=== PATIENT | female | born 1945 | race Hispanic/Latino ===

== ENCOUNTER → 2018-06-02 | Day surgery (SDC) | payer MEDICARE ==
[2018-05-30 10:29] LABS: BASOPHILS # (AUTO) 0.1 (0.0-0.1); BASOPHILS % 0.9 % (0.0-1.0); EOSINOPHILS # (AUTO) 0.1 (0.0-0.4); EOSINOPHILS % 2.5 % (0.0-6.0); HEMATOCRIT 32.6 % (34.2-44.1); HEMOGLOBIN 10.7 g/dL (12.0-16.0); LYMPHOCYTES # (AUTO) 1.7 (1.0-3.2); LYMPHOCYTES % 31.6 % (18.0-39.1); MEAN CORPUSCULAR HEMOGLOBIN 29.6 pg (28-32); MEAN CORPUSCULAR HGB CONC 32.8 g/dL (31-35); MEAN CORPUSCULAR VOLUME 90.3 fL (81-99); MONOCYTES # (AUTO) 0.5 (0.2-0.8); MONOCYTES % 8.9 % (4.4-11.3); NEUTROPHILS # (AUTO) 3.1 (2.1-6.9); NEUTROPHILS % 55.7 % (38.7-80.0); PLATELET COUNT 228 x10e3/uL (140-360); RED BLOOD COUNT 3.61 x10e6/uL (3.6-5.1); RED CELL DISTRIBUTION WIDTH 14.4 % (11.7-14.4)
[~2018-06-02] MED LIST: ALLOPURINOL300 MG PO; ATENOLOL100 MG PO; FENTANYL CITRATE/PF 100MCG/2 ML INJ ONE; HYDROCHLOROTHIA50 MG PO; HYOSCYAMINE SULFATE 0.5 MG/ML INJ ONE; LISINOPRIL40 MG PO; METFORMIN HCL500 MG PO; METOPROLOL SUCC50 MG PO; MIDAZOLAM HCL 2 MG/2 ML VIAL ONE; SIMVASTATIN20 MG PO; SUCCINYLCHOLINE 200 MG/10 ML SYR ONE
[2018-06-02 16:19] VITALS: BP 123/67
[2018-06-02 16:47] LABS: WBC,FECAL (FECAL LACTOFERRIN) NEGATIVE (NEGATIVE)
--- NOTE | 2018-06-03 02:20 | Operative Report ---
DATE OF PROCEDURE: June 02, 2018 REFERRING PHYSICIAN: Dr. Tremaine Maradiaga. PROCEDURE PERFORMED: Esophagogastroduodenoscopy with biopsies and colonoscopy with polypectomy and biopsies. INDICATIONS FOR ESOPHAGOGASTRODUODENOSCOPY: Dyspepsia. INDICATIONS FOR COLONOSCOPY: Colorectal cancer screening, change of bowel habits. MEDICATION: Patient was done under MAC. Please see anesthesiologist's note. ESOPHAGOGASTRODUODENOSCOPY: Patient was placed in lateral decubitus position. Flexible fiberoptic Olympus gastroscope was introduced into the esophagus under direct visualization without any difficulty. There was some patchy erythema noted in distal esophagus. The scope was then advanced with ease into the stomach. Mucosa overlying the antrum and the body revealed some diffuse erythema and moderate edema and biopsies were obtained and sent to stain for H. pylori. Pylorus appeared to be of normal contour and shape, was intubated with ease, and the scope was advanced all the way to the 2nd portion of the duodenum. The scope was then withdrawn slowly, and a couple of somewhat scalloped looking folds were noted in the proximal 2nd portion. Biopsies were obtained to rule out sprue. Mucosa overlying the duodenal bulb appeared to be within normal limits. The scope was then withdrawn back into the stomach and retroflexed, and mucosa overlying the fundus and the cardia appeared to be within normal limits. The scope was then straightened out. The stomach was decompressed. Scope was subsequently withdrawn. Patient tolerated the procedure well. IMPRESSION 1. Distal esophagitis, mild. 2. Gastritis, biopsied; biopsies sent to stain for H. Pylori. 3. Rule out sprue. PLAN: Follow up histology. Initiate Protonix 40 mg 1 p.o. q.a.m. a.c. COLONOSCOPY: Patient was then turned around, and after adequate lubrication of the anal canal, a flexible fiberoptic Olympus colonoscope was inserted into the rectum with ease and advanced all the way to the cecum. It was then withdrawn slowly. Mucosa overlying the cecum appeared to be within normal limits. Two polyps were snared from the ascending colon. Mucosa overlying the ascending, transverse, descending, sigmoid, and rectum revealed some patchy mild inflammatory changes. Multiple random biopsies were obtained. The scope was then retroflexed into the distal rectum and small internal hemorrhoids were noted, none of which was actively bleeding. The scope was then straightened out. It was subsequently withdrawn after securing an adequate stool specimen that was sent for the appropriate stool studies. Patient tolerated procedure well. IMPRESSION 1. Ascending colon polyps x2, snared. 2. Mild patchy colitis. 3. Internal hemorrhoids, none actively bleeding. PLAN: Follow up histology. Follow up stool studies. Initiate Bentyl 10 mg 1 p.o. t.i.d.. Add VSL#3 one p.o. daily. Patient might benefit from a followup colonoscopy in 3-5 years. Job#: [id number] TRACEY cc:Dr. Tremaine Maradiaga
[2018-06-03 14:12] LABS: C DIFFICILE TOXIN A&B AMP PROB NEGATIVE (NEGATIVE)
== END | disposition home or self-care (01) ==
LOC: OR 13:28
PROVIDERS: ATTEND Internal Medicine Gastroenterology
DX: K52.9 Noninfective gastroenteritis and colitis, unspecified (principal); D12.2 Benign neoplasm of ascending colon; K29.70 Gastritis, unspecified, without bleeding; K20.9 Esophagitis, unspecified; K64.8 Other hemorrhoids; E11.9 Type 2 diabetes mellitus without complications; I10 Essential (primary) hypertension; M10.9 Gout, unspecified; R00.1 Bradycardia, unspecified; F41.9 Anxiety disorder, unspecified; Z01.810 Encounter for preprocedural cardiovascular examination; Z01.812 Encounter for preprocedural laboratory examination; Z79.84 Long term (current) use of oral hypoglycemic drugs
CPT/HCPCS: 36415 ×2; 43239; 45380; 45385; 82948; 83630; 83993; 85025; 87045; 87177; 87328; 87493; 88305; 88312; 88342; 93005; J1980; J2250

== ENCOUNTER 2018-07-16 13:22 | Inpatient (IN) | payer MEDICARE, OTHER ==
[~2018-07-16] VITALS: Ht 162.6 cm; Wt 52.2 kg
[~2018-07-16 13:22] MED LIST changes: -FENTANYL CITRATE/PF 100MCG/2 ML INJ ONE; -HYOSCYAMINE SULFATE 0.5 MG/ML INJ ONE; -MIDAZOLAM HCL 2 MG/2 ML VIAL ONE; -SUCCINYLCHOLINE 200 MG/10 ML SYR ONE
[2018-07-16] MEDS ORDERED: SODIUM CHLORIDE 0.9% 1000ML 1,000 ML IV ONE (16:15)
[2018-07-16] MEDS ORDERED: METHYLPREDNISOLONE SOD SUCC 125 MG/2ML VIAL IV ONE (16:15)
[2018-07-16] MEDS ORDERED: FAMOTIDINE 20 MG/2 ML VIAL IV NR (16:30)
[2018-07-16] MEDS ORDERED: DIPHENHYDRAMINE HCL INJ 50 MG/ML VIAL IV ONE (16:30)
[2018-07-16 16:51] LABS: BASOPHILS % 1.1 % (0.0-1.0); EOSINOPHILS # (AUTO) 0.1 (0.0-0.4); EOSINOPHILS % 4.3 % (0.0-6.0); HEMATOCRIT 38.3 % (34.2-44.1); HEMOGLOBIN 12.6 g/dL (12.0-16.0); LYMPHOCYTES # (AUTO) 1.4 (1.0-3.2); LYMPHOCYTES % 48.9 % (18.0-39.1); MEAN CORPUSCULAR HEMOGLOBIN 29.4 pg (28-32); MEAN CORPUSCULAR HGB CONC 32.9 g/dL (31-35); MEAN CORPUSCULAR VOLUME 89.3 fL (81-99); MONOCYTES # (AUTO) 0.3 (0.2-0.8); MONOCYTES % 9.9 % (4.4-11.3); NEUTROPHILS % 35.4 % (38.7-80.0); PLATELET COUNT 242 x10e3/uL (140-360); RED BLOOD COUNT 4.29 x10e6/uL (3.6-5.1); RED CELL DISTRIBUTION WIDTH 14.7 % (11.7-14.4)
[2018-07-16 17:05] LABS: ALANINE AMINOTRANSFERASE 45 IU/L (0-55); ALBUMIN 4.6 g/dL (3.5-5.0); ALBUMIN/GLOBULIN RATIO 0.9 (0.8-2.0); ALKALINE PHOSPHATASE 56 IU/L (40-150); ANION GAP 18.9 mmol/L (8-16); BLOOD UREA NITROGEN 59 mg/dL (7-26); BUN/CREATININE RATIO 35 (6-25); CALCIUM 10.1 mg/dL (8.4-10.2); CARBON DIOXIDE 18 mmol/L (22-29); CHLORIDE 105 mmol/L (98-107); EST GLOMERULAR FILTRATION RATE 30 ML/MIN (60-); GLUCOSE 106 mg/dL (74-118); MAGNESIUM 2.7 MG/DL (1.3-2.1); PHOSPHORUS 3.4 MG/DL (2.3-4.7); POTASSIUM 5.9 mmol/L (3.5-5.1); SODIUM 136 mmol/L (136-145)
[2018-07-16] MEDS ORDERED: ALBUTEROL SULF 0.083% NEB SOLN 3 ML NEB NEB STA (17:19)
[2018-07-16] MEDS ORDERED: SODIUM BICARBONATE 8.4% INJ 50 ML SYR IV STA (17:19)
[2018-07-16 17:20] LABS: BILIRUBIN,URINE NEGATIVE (NEGATIVE); CLARITY,URINE SL CLOUDY (CLEAR); COLOR,URINE YELLOW (YELLOW); KETONES,URINE NEGATIVE (NEGATIVE); LEUKOCYTE ESTERASE ,URINE TRACE (NEGATIVE); NITRITE,URINE NEGATIVE (NEGATIVE); PROTEIN,URINE DIPSTICK NEGATIVE (NEGATIVE); URINE UROBILINOGEN 0.2 mg/dL (0.2 - 1)
[2018-07-16 17:25] LABS: THYROID STIMULATING HORMONE 2.351 uIU/mL (0.350-4.940)
[2018-07-16 17:27] LABS: AMORPHOUS SEDIMENT,URINE FEW (FEW); BACTERIA,URINE MODERATE /HPF; EPITHELIAL CELLS,URINE FEW /LPF; RENAL EPITHELIAL CELLS,URINE FEW
[2018-07-16] MEDS ORDERED: SOD POLYSTYRENE SULFONATE SUSP 15 GM/60 ML BTL PO ONE (17:30)
[2018-07-16] MEDS ORDERED: CALCIUM GLUCONATE 10% INJ 9.3 MEQ in SODIUM CHLORIDE 0.9% 100 ML 100 ML IV ONE (17:30)
[2018-07-16] MEDS ORDERED: ONDANSETRON HCL INJ 2 MG/ML VIAL IV PRN (17:30)
[2018-07-16] MEDS ORDERED: SODIUM CHLORIDE FLUSH 10 ML SYR INJ PRN (17:30)
[2018-07-16] MEDS ORDERED: CEFTRIAXONE SOD 1 GM VIAL IV SCH (17:30)
[2018-07-16] MEDS ORDERED: DEXTROSE 50% SYRINGE 50 ML IV PRN (18:00)
[2018-07-16 18:18] LABS: % IRON SATURATION 26 % (15-50); CREATINE KINASE 52 IU/L (29-168); IRON 88 ug/dL (50-170); TOTAL IRON BINDING CAPACITY 344 ug/dL (261-478); TRANSFERRIN 246 mg/dL (180-382)
[2018-07-16] MEDS ORDERED: CALCIUM GLUCONATE 10% INJ 0.465 MEQ/ML VIAL ONE ×2 (18:52→18:56)
[2018-07-16] MEDS ORDERED: SODIUM CHLORIDE 0.9% 100 ML ONE (18:53)
[2018-07-16 18:55] LABS: HIV 1&2 AB SCREEN NON-REACTIVE (NONREACTIVE)
[2018-07-16 18:59] LABS: EOSINOPHILS % (MANUAL) 2 % (0-7); LYMPHOCYTES % (MANUAL) 42 % (19-48); MONOCYTES % (MANUAL) 14 % (3.4-9.0); NEUTROPHILS % (MANUAL) 42 % (40-74)
[2018-07-16 19:00] LABS: PLATELET ESTIMATE ADEQUATE; PLATELET MORPHOLOGY COMMENT NORMAL; RBC MORPHOLOGY COMMENT NORMAL
[2018-07-16 19:04] LABS: FOLATE 13.1 ng/mL (7.0-15.4)
--- NOTE | 2018-07-16 19:12 | NUR ---
REPPORT GIVEN TO MEGHNA GAY. PT SITTING UP IN BED EATING DINNER AT THIS TIME AND TOLERATING WELL. PT AWARE SHE WILL BE ADMITTED AND ROOM ASSIGNMENT IS PENDING AT THIS TIME.
[2018-07-16] MEDS: CEFTRIAXONE SOD 1 GM/NS 50 ML 50 ML IV SCH (19:18)
--- NOTE | 2018-07-16 19:26 | Diagnostic Imaging Report ---
EXAMINATION: CHEST 2 VIEWS INDICATION: Fever and weakness COMPARISON: None FINDINGS: PA and lateral views TUBES and LINES: None. LUNGS: The diaphragms are flat. The lungs are well-inflated. There is no evidence of pneumonia or pulmonary edema. PLEURA: There is blunting of the left posterior costophrenic angle. HEART AND MEDIASTINUM: The cardiomediastinal silhouette is unremarkable.. BONES AND SOFT TISSUES: No focal osseous lesions. Soft tissues are unremarkable. UPPER ABDOMEN: No free air under the diaphragm. IMPRESSION: Pulmonary hyperinflation suggestive of COPD. Blunting of the left posterior costophrenic angle may be the result of pleural effusion or pleural thickening. Signed by: Dr. Karla Grullon MD on 07/16/2018 7:22 PM
--- NOTE | 2018-07-16 19:28 | History and Physical ---
HISTORY OF PRESENT ILLNESS: The patient was seen in the office last July 13. At that time, she reported 1 week of intermittent fever with poor appetite without other significant symptoms. Ultrasound was requested and revealed some gallbladder sludge without cholecystitis. Questionable steatosis of liver. No obstruction. White count at that time was low at 3000. Her laboratory reports did not return until today however. These reports included AST 42 ALT 31. Today, AST is 43. To check CPK. The patient's lab studies also revealed azotemia, which is slightly improved today. Also hyperkalemia and the patient was asked to come to the hospital to be treated for her elevated potassium levels and for further assessment. Patient denies headache or visual symptoms. No sore throat. No significant respiratory symptoms. She states for several days, she has lost her appetite. She noted a truncal pruritic macular eruption also involving the upper extremities. Patient denied chest pain or shortness of breath. Denied other significant GI or symptoms. No dysuria or hematuria or frequency. Neuromuscular, essentially stable. Monday's BUN 48, creatinine 2.40. Flu A and B antigens were negative last Monday. June 02, here, EGD colonoscopy done and revealed esophagitis, gastritis, benign polyps, mild colitis. History has included chronic mild anemia with negative workup previously. Type-2 diabetes mellitus controlled. High blood pressure. Hyperlipoproteinemia. Gout. No recent gouty symptoms. Surgeries have included appendectomy. 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 No tobacco. Social alcohol. ALLERGIES: FLEXERIL. INTOLERANCE TO CIPRO IN THE PAST. PATIENT HAS NOT TAKEN ANTIBIOTICS RECENTLY. ER DID HOWEVER ORDERED INTRAVENOUS CEPHALOSPORIN TODAY. FAMILY HISTORY: Mother with hypertension and diabetes. Father with hypertension. CURRENT EXAMINATION GENERAL: The patient is supine. In no distress in no distress. Sensorium baseline. VITALS: Pulse is 80 and regular. Respiratory rate 12, no distress. ER temperature 97.6. ER pulse 55 and regular. Respiratory rate is 16. BP 150/71. O2 sat 100%. HEENT: Pupils round reactive. EOMs full. Throat clear. NECK: Supple. Carotids palpable. PULMONARY: Auscultation clear. CARDIAC SOUNDS: S1 and S2 normal. SKIN: Questionable faint erythematous changes over the skin, which lines with pressure. CARDIOTHORACIC: Exam negative as above. ABDOMEN: Abdomen is soft. Bowel sounds normal without appreciable mass or megaly. EXTREMITIES: Free of edema, clubbing, and cyanosis. Pulses are palpable. DTRs symmetrical. Babinski is negative. Strength fair. CURRENT IMPRESSIONS 1. Acute febrile illness of 1 week's duration. The patient states fever has stopped yesterday after the approximately 1 week of these symptoms associated with nausea, loss of appetite, pruritic macular skin changes associated low white blood cell count. Today's white count is 2.82, hemoglobin 12.6 with normal indices. Percent neutrophil is low at 35.4. Percent lymphocytes 48.9. Associated azotemia and hyperkalemia. Creatinine 1.7. BUN 59 today. 2. History of chronic mild anemia. Current iron studies normal. Recent gastrointestinal studies as above. 3. Questionable hepatic steatosis on ultrasound last Monday. Trace elevated transaminases on statins. To check creatine phosphokinase. 4. History of gastritis and esophagitis. Mild colitis on endoscopy as mentioned June 02, 2018. See reports. 5. Elevated total protein. Globulin elevated. To check protein electrophoresis. Continue to monitor potassium levels. History includes diabetes mellitus. To hold prior to admission metformin. Treat with sliding scale as needed. Follow up blood pressures and treat as needed. This patient has history of hypertension. Hyperlipoproteinemia. Chemistry as above. Further treatment pending followup data and course. Treat hyperkalemia further if needed. See also initial and followup orders. ER has dispensed also bolus of steroids for pruritus. Job#: [id number] CQ
[2018-07-16] MEDS: SODIUM CHLORIDE 0.9% 1000ML 1,000 ML IV SCH (21:00)
[2018-07-16 21:10] VITALS: BP 168/69
--- NOTE | 2018-07-16 21:10 | NUR ---
PT ADMITTED TO OBS, VIA STRETCHER FROM ER, INITIAL ASSESSMENT COMPLETE, ORIENTED TO ROOM, PAPERWORK SIGNED, TELE ON PT, IV INTACT, IV INFUSING, FAMILY AT BEDSIDE,
[2018-07-17] VITALS (7 sets, daily range): BP systolic 119–168; BP diastolic 59–70
[2018-07-17] MEDS: SODIUM CHLORIDE 0.9% 1000ML 1,000 ML IV SCH ×2 (03:29→17:50)
[2018-07-17 05:09] LABS: HEMATOCRIT 27.4 % (34.2-44.1); HEMOGLOBIN 9.1 g/dL (12.0-16.0); LYMPHOCYTES # (AUTO) 0.6 (1.0-3.2); LYMPHOCYTES % 46.9 % (18.0-39.1); MEAN CORPUSCULAR HEMOGLOBIN 29.3 pg (28-32); MEAN CORPUSCULAR HGB CONC 33.2 g/dL (31-35); MEAN CORPUSCULAR VOLUME 88.1 fL (81-99); MONOCYTES # (AUTO) 0.1 (0.2-0.8); MONOCYTES % 6.3 % (4.4-11.3); NEUTROPHILS # (AUTO) 0.6 (2.1-6.9); NEUTROPHILS % 46.8 % (38.7-80.0); PLATELET COUNT 169 x10e3/uL (140-360); RED BLOOD COUNT 3.11 x10e6/uL (3.6-5.1); RED CELL DISTRIBUTION WIDTH 14.5 % (11.7-14.4)
[2018-07-17 05:37] LABS: ALBUMIN 3.2 g/dL (3.5-5.0); ALBUMIN/GLOBULIN RATIO 0.9 (0.8-2.0); ANION GAP 15.5 mmol/L (8-16); CALCIUM 8.5 mg/dL (8.4-10.2); CREATININE, SERUM 1.36 mg/dL (0.57-1.11); POTASSIUM 5.5 mmol/L (3.5-5.1)
[2018-07-17] MEDS: CEFTRIAXONE SOD 1 GM/NS 50 ML 50 ML IV SCH ×2 (06:00→17:52)
--- NOTE | 2018-07-17 06:23 | NUR ---
CRITICAL LAB VALUES REPORTED THIS MORNING, DR DONOVAN CALLED, REQUESTED CONSULT OF DR HEREDIA AND LAB WORK UP, SPOKE WITH DR HEREDIA AND HE WILL SEE PT TODAY
--- NOTE | 2018-07-17 08:01 | NUR ---
Dr. Maradiaga made aware of potassium level of 5.5, no new orders given.
[2018-07-17] MEDS ORDERED: FILGRASTIM 300 MCG/ML VIAL SC SCH ×2 (09:15)
[2018-07-17] MEDS ORDERED: FILGRASTIM 480 MCG/0.8 ML SYRINGE SQ NR (10:00)
--- NOTE | 2018-07-17 10:23 | NUR ---
CASE MANAGEMENT INITIAL ASSESSMENT Tank Processor to bedside to discuss plan of care with patient/family. CM/SW role and care transitions discussed. Anticipated discharge plan discussed along with duration of care. CM/SW discussed patients right to make decisions in care. CM/SW work hours given. Patient lives: IN OWN HOUSE WITH ADULT SON Admit/Transfer: VIA ED FROM HOME POA/Emergency contact: DAUGHTER REGAN [phone] Current/Previous Home Health: NONE PCP/Follow-up Care: [facility] Current/Previous DME: NONE Other Services: NONE Employment Status: RETIRED Areas of Concerns: EVERYDAY SMOKER Referral Needs: NONE Education Needs: NONE IMM/THIBODEAUX given and signed (if applicable): NA Goal for discharge: RETURN HOME INDEPENDENTLY CM/SW left business card at the bedside with contact information. Name and number was also written on the patients whiteboard. Patient verbalized understanding of discussion. CM will follow-up with ongoing discharge and transition of care needs.
--- NOTE | 2018-07-17 11:15 | Consultation ---
DATE OF CONSULTATION: July 17, 2018 ATTENDING PHYSICIAN: Tremaine Maradiaga MD REASON FOR CONSULTATION: Febrile illness. Thank you, Dr. Maradiaga, for asking me to see this patient. HISTORY OF PRESENT ILLNESS: Patient is a 72-year-old woman referred for febrile illness. The patient was sent to the emergency department yesterday by the primary care provider because of hyperkalemia. The patient presented to the primary care provider with fever, chills, and generalized weakness which began 5 days earlier. The patient also noted diffuse maculopapular rash. She denies cough, shortness of breath, nausea, vomiting, diarrhea, abdominal pain and dysuria. The patient's grandson had a runny nose and cough, but he only came in contact with the patient several hours prior to onset of her symptoms. The patient owns dogs which are healthy. She traveled to [place] for [employer], spending about 4 days there. She did not come in contact with a construction site while in [place]. Also, she claimed that it was cold and snowing and not maria r. The patient was recently treated for urinary tract infection by the housekeeping worker, and she completed the prescribed antibiotic without incident. Also, she began taking dicyclomine, pantoprazole and another medicine which she claimed was a probiotic prescribed by her [employer] product consultant after a recent colonoscopy. The patient stated that she stopped taking the medicines on her own when the fever and chills began. PAST MEDICAL HISTORY: Diabetes mellitus type 2, hypertension, hyperlipidemia, gout and uterine prolapse. PAST SURGICAL HISTORY: Aneurysmal coiling and appendectomy. ALLERGIES: FLEXERIL AND CIPROFLOXACIN, WHICH CAUSED DIZZINESS AND A SPINNING SENSATION. MEDICATIONS: The current antibiotic is ceftriaxone 1 gram IV piggyback q.12 h. IMMUNIZATION: She received influenza vaccine this season. Also, she received a pneumococcal vaccination in the past. FAMILY HISTORY: Mother with diabetes mellitus and hypertension. Father with hypertension. SOCIAL HISTORY: She drinks alcohol occasionally. She smoked briefly in college. REVIEW OF SYSTEMS: As per history of present illness. She has not had fever for 3 to 4 days. The rash is improving. She denies cough, shortness of breath, nausea, vomiting, diarrhea, abdominal pain, joint ache, joint swelling, dysuria or diarrhea. PHYSICAL EXAMINATION VITAL SIGNS: T-max 97.6, pulse rate 72, respiratory rate 18, blood pressure 138/65. Weight 115 pounds. GENERAL: No acute distress, does not appear toxic. HEENT: Normocephalic. There is no icterus or injection of the conjunctivae. There is no ear or nasal discharge. Moist oral mucosa without with oral lesions. No pharyngeal erythema or exudate. NECK: Supple. No meningismus. LUNGS: Clear to auscultation bilaterally. HEART: Normal S1 and S2, regular. ABDOMEN: Soft, nontender. EXTREMITIES: There is no edema, clubbing or cyanosis. Dorsalis pedis and posterior tibial pulses are palpable. SKIN: There is diffuse, fading, maculopapular rash. HEAD TENNIS PROFESSIONAL: Awake, alert and oriented to person, place and time. The monofilament test of the feet is normal. Nonfocal. LABORATORY AND DIAGNOSTICS: WBC 1280, hemoglobin 9.1, platelets 169,000, neutrophils 46.8, lymphocytes 46.9, monocytes 6.2, eosinophils 0, basophils 0. BUN 43 and creatinine 1.36. Serum potassium 5.5. Blood glucose 169. AST 25, ALT 30, alk phos 36, total bilirubin 0.3. HIV screen is negative. Chest x-ray showed pulmonary hyperinflation suggestive of COPD. IMPRESSION 1. Febrile illness, self-limiting, may be secondary to viral syndrome or drug eruption. Valley fever is less likely in view of rapid resolution of symptoms. 2. Diabetes mellitus, type 2, controlled. PLAN: Monitor off antibiotics. If the symptoms recur, the patient should be worked up for valley fever. Job#: [id number]
[2018-07-17] MEDS ORDERED: SOD POLYSTYRENE SULFONATE SUSP 15 GM/60 ML BTL PO ONE (13:00)
[2018-07-17] MEDS ORDERED: DEXTROSE 50% SYRINGE 50 ML IV PRN (13:15)
[2018-07-17] MEDS ORDERED: SINCALIDE 3 MCG/VIAL INJ ONE (16:31)
--- NOTE | 2018-07-17 17:15 | NUR ---
Dr. Maradiaga made aware of ejection fraction of the gallbladder of 11%.
[2018-07-17] MEDS: INSULIN REGULAR, HUMAN 100 UNIT/1 ML 3ML VIAL SQ SCH ×2 (17:40→21:53)
--- NOTE | 2018-07-17 18:49 | Diagnostic Imaging Report ---
Hepatobiliary Scan with Gallbladder Ejection Fraction Clinical information: 72 F with abdominal pain Report: Following intravenous administration of 5.9 millicuries of Tc-99m mebrofenin, dynamic images of the abdomen in the anterior projection were obtained through 30 minutes. Sincalide (CCK analog) 1.2 micrograms was administered intravenously over 30 minutes with additional imaging for determination of gallbladder ejection fraction. Perfusion to the liver is normal. Extraction of tracer from the blood pool by the liver parenchyma is normal. Tracer is seen promptly within the biliary tract. The gallbladder begins to fill by 12 minutes post-injection of tracer and fills adequately. Tracer is seen in the small bowel by 8 minutes. The gallbladder ejection fraction with administration of sincalide is 11% (normal greater than 40%). Impression: 1. Filling of the gallbladder excludes the diagnosis of acute cystic duct obstruction/acute cholecystitis. 2. Normal gallbladder ejection fraction of 11% does not support the clinical diagnosis of chronic cholecystitis/gallbladder dyskinesia. Signed by: Dr. Karen Correa M.D. on 07/17/2018 6:45 PM
--- NOTE | 2018-07-17 19:13 | NUR ---
PT IS RESTING IN BED. NO RESPIRATORY DISTRESS NOTED. BED IN THE LOWEST POSITION, LOCKED, AND CALL LIGHT WITHIN REACH. WILL CONTINUE TO MONITOR.
[2018-07-18] VITALS (7 sets, daily range): BP systolic 121–168; BP diastolic 59–77
[2018-07-18] MEDS: SODIUM CHLORIDE 0.9% 1000ML 1,000 ML IV SCH ×2 (04:21→20:47)
[2018-07-18 05:15] LABS: BASOPHILS % 0.1 % (0.0-1.0); EOSINOPHILS % 0.1 % (0.0-6.0); HEMATOCRIT 26.7 % (34.2-44.1); HEMOGLOBIN 8.7 g/dL (12.0-16.0); LYMPHOCYTES # (AUTO) 1.6 (1.0-3.2); LYMPHOCYTES % 10.6 % (18.0-39.1); MEAN CORPUSCULAR HGB CONC 32.6 g/dL (31-35); MONOCYTES # (AUTO) 0.8 (0.2-0.8); MONOCYTES % 5.8 % (4.4-11.3); NEUTROPHILS # (AUTO) 11.9 (2.1-6.9); NEUTROPHILS % 81.3 % (38.7-80.0); PLATELET COUNT 174 x10e3/uL (140-360); RED CELL DISTRIBUTION WIDTH 14.6 % (11.7-14.4)
[2018-07-18] MEDS: CEFTRIAXONE SOD 1 GM/NS 50 ML 50 ML IV SCH ×2 (05:38→17:17)
[2018-07-18] MEDS: INSULIN REGULAR, HUMAN 100 UNIT/1 ML 3ML VIAL SQ SCH ×4 (07:30→20:48)
[2018-07-18] MEDS ORDERED: LIDOCAINE HCL 2% LOCAL 20 ML VIAL INJ ONE (08:15)
[2018-07-18 08:16] LABS: BAND NEUTROPHILS % (MANUAL) 3 %; LYMPHOCYTES % (MANUAL) 14 % (19-48); MONOCYTES % (MANUAL) 5 % (3.4-9.0); NEUTROPHILS % (MANUAL) 78 % (40-74)
[2018-07-18 08:17] LABS: ANISOCYTOSIS SLIGHT; HYPOCHROMASIA MODE; PLATELET ESTIMATE ADEQUATE; RBC MORPHOLOGY COMMENT NORMAL
[2018-07-18 08:18] LABS: PLATELET MORPHOLOGY COMMENT NORMAL
--- NOTE | 2018-07-18 10:10 | NUR ---
bone marrow biopsy complete at BS by Dr Rodriguez. patient tolerated well.
--- NOTE | 2018-07-18 12:28 | NUR ---
patient c/o chest pain. Dr Adrienne avitia and EKG done.
--- NOTE | 2018-07-18 13:15 | NUR ---
Dr Forte notified of cardiac consult.
[2018-07-18 13:35] LABS: CREATINE KINASE 32 IU/L (29-168)
[2018-07-18] MEDS ORDERED: ACETAMINOPHEN 325 MG TAB PO PRN (13:45)
[2018-07-18] MEDS ORDERED: SOD POLYSTYRENE SULFONATE SUSP 15 GM/60 ML BTL PO ONE (15:15)
--- NOTE | 2018-07-18 15:49 | NUR ---
DAY 2 OBS DEVELOPED CHEST PAIN TODAY CARDIOLOGY CONSULT ENZYMES AND ECHO PENDING K HIGH; KAYEXALATE ORDERED NO INPT CRITERIA
--- NOTE | 2018-07-18 16:23 | Consultation ---
DATE OF CONSULTATION: July 18, 2018 CARDIOLOGY CONSULTATION REQUESTING PHYSICIAN: Dr. Maradiaga. REASON FOR CONSULTATION: Chest pain. HISTORY OF PRESENT ILLNESS: This is a pleasant 72-year-old female that presented due to elevated potassium. She stated that she had fever x1 week and generalized weakness. She went to see PCP, and some lab work was done. She stated on the she got a phone call to come to the emergency room because her potassium was elevated. She also stated [place], did not come in contact with any sick person. She was flu negative. Today she started complaining of tight chest pain on the center of the chest on a scale of 5 out of 10 with no radiation, and Cardiology was consulted. She recently saw Dr. Dylan Forte in the office in December, had a negative cardiac stress test, and also in June for surgical clearance. She denied any palpitation, any shortness of breath, any diaphoresis, any headache, any nausea or vomiting. She also stated she was so dehydrated with low appetite and she was not able to eat. Troponin x2 was negative. EKG showed normal sinus rhythm with no ST abnormality with P-wave inversion in V1 and V2. PAST MEDICAL HISTORY: Of diabetes, hypertension, gout, uterine prolapse, hyperlipidemia, anemia, nonbleeding internal hemorrhoids, ascending colon polyps x2, mild patchy colitis, and GERD. PAST SURGICAL HISTORY: Of appendectomy and right central nervous system aneurysm coil that was done in 2008. FAMILY HISTORY: Noncontributory. SOCIAL HISTORY: She lives at home with family. No smoking, no drinking. MEDICATIONS: See med list. ALLERGIES: SHE IS NOT ALLERGIC TO ANY MEDICATION. REVIEW OF SYSTEMS: Negative except those mentioned above. PHYSICAL EXAMINATION VITAL SIGNS: Temperature 97.4, heart rate 80, blood pressure 164/74, respiration 16, oxygen saturation 99% on 2 liters nasal cannula. GENERAL: She is awake, alert and oriented x3 but weak. HEENT: Mucous membrane dry. NECK: Supple. LUNGS: Bilaterally clear to auscultation. CARDIOVASCULAR: S1/S2 present. ABDOMEN: Soft. NEUROLOGICAL: Intact. EXTREMITIES: Lower with no edema. LABS: Sodium 134, potassium 5.5, chloride 106, CO2 18, BUN 43, creatinine 1.36, glucose 183. White blood cell 14.5, hemoglobin 8.7, hematocrit 26.7, platelet 174. IMPRESSION 1. Chest pain. 2. Hyperkalemia. 3. Anemia. 4. Acute renal insufficiency. 5. Urinary tract infection. 6. Hypertension. 7. Elevated white blood count. 8. Hyperlipidemia. 9. History of gout. ASSESSMENT/PLAN 1. Will go ahead and get serial cardiac enzymes. 1. Will get an echocardiogram to assess the LV and the valve function. 2. Potassium 5.5, will go ahead and give Kayexalate x1. 3. Blood pressure high, will resume her home medication beta kerrie, will go ahead and hold CURT and statin due to the elevated liver function and the renal function. 4. She had a recent stress test in December 2017 that was negative. 5. She is status post bone marrow biopsy due to fever of unknown origin. Further cardiac workup pending clinical course. Thank you for this consultation. Dictated by: Reinier Cornejo NP Job#: [id number]
[2018-07-18 17:14] LABS: CALCIUM 8.2 mg/dL (8.4-10.2); CREATININE, SERUM 0.93 mg/dL (0.57-1.11)
--- NOTE | 2018-07-18 17:22 | Diagnostic Imaging Report ---
EXAMINATION: CHEST SINGLE (PORTABLE) COMPARISON: Chest x-ray 07/16/2018 INDICATION: Chest pain DISCUSSION: Frontal view of the chest obtained at 1637 hours. HEART AND MEDIASTINUM: The cardiomediastinal silhouette is unremarkable. LINES: None. LUNGS: Diffuse hyperinflation suggestive of COPD. No pneumonia or pulmonary edema. PLEURA: No pleural effusion or pneumothorax. BONES AND SOFT TISSUES: No focal osseous lesion. The soft tissues are normal. IMPRESSION: Stable pulmonary hyperinflation. No acute cardiopulmonary process. Signed by: Dr. Karla Grullon MD on 07/18/2018 5:19 PM
[2018-07-19] VITALS: BP 163/79
[2018-07-19] MEDS: SODIUM CHLORIDE 0.9% 1000ML 1,000 ML IV SCH (00:47)
[2018-07-19 04:00] VITALS: BP 162/73
--- NOTE | 2018-07-19 05:05 | NUR ---
Patient's IV removed due to infiltration. Patient states she does not want another inserted because she's going home today. Explained to her about antibiotics due at 0600. States she wants to wait for doctor.
[2018-07-19 05:10] LABS: BASOPHILS % 0.2 % (0.0-1.0); EOSINOPHILS # (AUTO) 0.1 (0.0-0.4); EOSINOPHILS % 0.5 % (0.0-6.0); HEMATOCRIT 25.6 % (34.2-44.1); HEMOGLOBIN 8.4 g/dL (12.0-16.0); LYMPHOCYTES # (AUTO) 1.7 (1.0-3.2); LYMPHOCYTES % 11.5 % (18.0-39.1); MEAN CORPUSCULAR HEMOGLOBIN 29.2 pg (28-32); MEAN CORPUSCULAR HGB CONC 32.8 g/dL (31-35); MEAN CORPUSCULAR VOLUME 88.9 fL (81-99); MONOCYTES % 6.6 % (4.4-11.3); NEUTROPHILS # (AUTO) 10.6 (2.1-6.9); NEUTROPHILS % 71.7 % (38.7-80.0); PLATELET COUNT 176 x10e3/uL (140-360); RED BLOOD COUNT 2.88 x10e6/uL (3.6-5.1); RED CELL DISTRIBUTION WIDTH 14.6 % (11.7-14.4)
[2018-07-19 05:38] LABS: ANION GAP 13.4 mmol/L (8-16); BLOOD UREA NITROGEN 10 mg/dL (7-26); BUN/CREATININE RATIO 13 (6-25); CALCIUM 7.8 mg/dL (8.4-10.2); CARBON DIOXIDE 22 mmol/L (22-29); CHLORIDE 107 mmol/L (98-107); CREATININE, SERUM 0.78 mg/dL (0.57-1.11); EST GLOMERULAR FILTRATION RATE > 60 ML/MIN (60-); GLUCOSE 107 mg/dL (74-118); POTASSIUM 3.4 mmol/L (3.5-5.1); SODIUM 139 mmol/L (136-145)
[2018-07-19] MEDS: CEFTRIAXONE SOD 1 GM/NS 50 ML 50 ML IV SCH (06:00)
[2018-07-19] MEDS: INSULIN REGULAR, HUMAN 100 UNIT/1 ML 3ML VIAL SQ SCH ×3 (07:30→12:16)
--- NOTE | 2018-07-19 07:32 | NUR ---
Received patient, patient resting in bed. No signs of distress noted. Bed in lowest position, bed locked, call light within reach. Will continue to monitor.
[2018-07-19 08:06] VITALS: BP 148/69
[2018-07-19 08:13] VITALS: BP 148/69
[2018-07-19 08:48] LABS: BAND NEUTROPHILS % (MANUAL) 2 %; LYMPHOCYTES % (MANUAL) 13 % (19-48); METAMYELOCYTES % (MANUAL) 1 % (0-0); MONOCYTES % (MANUAL) 4 % (3.4-9.0); MYELOCYTES % (MANUAL) 3 % (0-0); NEUTROPHILS % (MANUAL) 77 % (40-74)
[2018-07-19 08:49] LABS: ANISOCYTOSIS SLIGHT; ELLIPTOCYTE, RBC SLIGHT; HYPOCHROMASIA MODERATE; PLATELET ESTIMATE ADEQUATE; PLATELET MORPHOLOGY COMMENT FEW LARGE; RBC MORPHOLOGY COMMENT NORMAL; SMUDGE CELLS FEW
[2018-07-19] MEDS ORDERED: METOPROLOL SUCCINATE 50 MG TAB XL PO SCH (09:00)
[2018-07-19 12:12] VITALS: BP 139/73
--- NOTE | 2018-07-19 13:43 | NUR ---
Patient discharged from facility. Patient left via private auto. F/U information, medication prescriptions, and discharge instructions given to patient. Patient verbalized understanding of discharge instructions. No signs of distress noted.
[2018-07-19] MEDS ORDERED: METFORMIN HCL 500 MG TAB PO SCH (17:00)
== END 2018-07-19 13:45 | disposition home or self-care (01) | DRG 683 ==
LOC: ER 13:22 → ERHOLD 17:46 → IMCU 21:17 → OBSVTOIN 07-18 17:11
PROVIDERS: ADMIT Internal Medicine; ATTEND Internal Medicine
DX: N17.9 Acute kidney failure, unspecified (principal); N39.0 Urinary tract infection, site not specified; E87.5 Hyperkalemia; B34.9 Viral infection, unspecified; E11.9 Type 2 diabetes mellitus without complications; Z79.4 Long term (current) use of insulin; I10 Essential (primary) hypertension; M10.9 Gout, unspecified; E78.5 Hyperlipidemia, unspecified; D64.9 Anemia, unspecified; K76.0 Fatty (change of) liver, not elsewhere classified; K29.70 Gastritis, unspecified, without bleeding; K20.9 Esophagitis, unspecified; K82.8 Other specified diseases of gallbladder; D63.8 Anemia in other chronic diseases classified elsewhere; J44.9 Chronic obstructive pulmonary disease, unspecified; E86.0 Dehydration
CPT/HCPCS: 36415; 71045; 71046; 78227; 80048; 80053; 81001; 82550; 82553; 82607; 82746; 82784; 82948; 83540; 83735; 84100; 84165; 84443; 84466; 84484; 85025; 85045; 87086; 87390; 93005; 93306; 99284; A9537; G0378; G0433; G0435; J0610; J0696; J1200; J1442; J2001; J2805; J2930; J7030; J7050

== ENCOUNTER 2018-08-06 23:13 | Emergency (ER) | payer OTHER ==
[~2018-08-06] VITALS: Ht 162.6 cm; Wt 52.2 kg
--- OUTSIDE RECORDS SUMMARY | 2018-08-06 23:16 | XMS REPORT | Continuity of Care Document ---
Author Author [facility] Interface Address Unknown Phone Unavailable Problems Problem Status Onset Date Classification Date Reported Comments Source Dehydration Active Problem 07/19/2018 [facility] Urinary tract infection Active Problem 07/19/2018 [facility] Medications Medication Details Route Status Patient Instructions Ordering Provider Order Date Source Allopurinol 300 Mg Tablet, 300 Mg Oral Daily Active 07/19/2018 [facility] Simvastatin 20 Mg Tablet, 20 Mg Oral Daily Active 07/19/2018 [facility] Atenolol 100 Mg Tablet, 100 Mg Oral Daily Active 05/31/2018 [facility] Hydrochlorothiazide 50 Mg Tablet, 50 Mg Oral Daily Active 05/31/2018 [facility] Lisinopril 40 Mg Tablet, 40 Mg Oral Daily Active 05/31/2018 [facility] Metformin Hcl 500 Mg Tablet Twice A Day Active [facility] Metoprolol Succinate 50 Mg Tab.er.24h Daily Active [facility] Allergies, Adverse Reactions, Alerts Substance Category Reaction Severity Reaction type Status Date Reported Comments Source Immunizations Immunization Date Given Site Status Last Updated Comments Source Results Order Name Results Value Reference Range Date Interpretation Comments Source Capillary blood glucose measurement by glucometer (mass/volume) 148 70 - 120 07/19/2018 [facility] Blood leukocytes automated count (number/volume) 14.77 4.8 - 10.8 07/19/2018 [facility] Blood erythrocytes automated count (number/volume) 2.88 3.6 - 5.1 07/19/2018 [facility] Blood hemoglobin measurement (moles/volume) 8.4 12.0 - 16.0 07/19/2018 [facility] Automated blood hematocrit (volume fraction) 25.6 34.2 - 44.1 07/19/2018 [facility] Automated erythrocyte mean corpuscular volume 88.9 81 - 99 07/19/2018 [facility] Automated erythrocyte mean corpuscular hemoglobin (mass per erythrocyte) 29.2 28 - 32 07/19/2018 [facility] Automated erythrocyte mean corpuscular hemoglobin concentration measurement (mass/volume) 32.8 31 - 35 07/19/2018 [facility] RDW BldCo-Rto 14.6 11.7 - 14.4 07/19/2018 [facility] Automated blood platelet count (count/volume) 176 140 - 360 07/19/2018 [facility] Automated blood segmented neutrophil count as percentage of total leukocytes 71.7 38.7 - 80.0 07/19/2018 [facility] Automated blood lymphocyte count as percentage ot total leukocytes 11.5 18.0 - 39.1 07/19/2018 [facility] Automated blood monocyte count as percentage of total leukocytes 6.6 4.4 - 11.3 07/19/2018 [facility] Automated blood eosinophil count as percentage of total leukocytes 0.5 0.0 - 6.0 07/19/2018 [facility] Automated blood basophil count as percentage of total leukocytes 0.2 0.0 - 1.0 07/19/2018 [facility] IM GRANULOCYTES % 9.5 0.0 - 1.0 07/19/2018 [facility] Automated blood neutrophil count 10.6 2.1 - 6.9 07/19/2018 [facility] Blood lymphocytes count (number/volume) 1.7 1.0 - 3.2 07/19/2018 [facility] Blood monocytes automated count (number/volume) 1.0 0.2 - 0.8 07/19/2018 [facility] Automated blood eosinophil count 0.1 0.0 - 0.4 07/19/2018 [facility] Automated blood basophil count (count/volume) 0.0 0.0 - 0.1 07/19/2018 [facility] Absolute Immature Granulocyte (auto 1.40 0 - 0.1 07/19/2018 [facility] Differential Total Cells Counted 100 07/19/2018 [facility] Manual blood neutrophils/100 leukocytes 77 40 - 74 07/19/2018 [facility] Manual blood band neutrophils form/100 leukocytes 2 07/19/2018 [facility] Manual blood lymphocytes/100 leukocytes 13 19 - 48 07/19/2018 [facility] Manual blood monocytes/100 leukocytes 4 3.4 - 9.0 07/19/2018 [facility] Manual blood metamyelocytes/100 leukocytes 1 0 - 0 07/19/2018 [facility] Manual blood myelocytes/100 leukocytes 3 0 - 0 07/19/2018 [facility] Blood smudge cells detection by light microscopy FEW 07/19/2018 [facility] Blood platelets count by estimate (number/volume) ADEQUATE 07/19/2018 [facility] Platelet morphology FEW LARGE 07/19/2018 [facility] Blood hypochromia detection by light microscopy MODERATE 07/19/2018 [facility] Blood anisocytosis detection by light microscopy SLIGHT 07/19/2018 [facility] Elliptocyte detection SLIGHT 07/19/2018 [facility] RBC morphology NORMAL 07/19/2018 [facility] Serum or plasma sodium measurement (moles/volume) 139 136 - 145 07/19/2018 [facility] Serum or plasma potassium measurement (moles/volume) 3.4 3.5 - 5.1 07/19/2018 [facility] Serum or plasma chloride measurement (moles/volume) 107 98 - 107 07/19/2018 [facility] Serum or plasma carbon dioxide, total measurement (moles/volume) 22 22 - 29 07/19/2018 [facility] Serum or plasma anion gap 13.4 8 - 16 07/19/2018 [facility] Serum or plasma urea nitrogen measurement (mass/volume) 10 7 - 26 07/19/2018 [facility] Serum or plasma creatinine measurement (mass/volume) 0.78 0.57 - 1.11 07/19/2018 [facility] Serum or plasma urea nitrogen/creatinine mass ratio 13 6 - 25 07/19/2018 [facility] Estimated glomerular filtration rate (GFR) determination > 60 60 07/19/2018 [facility] Glucose measurement 107 74 - 118 07/19/2018 [facility] Serum or plasma calcium measurement (mass/volume) 7.8 8.4 - 10.2 07/19/2018 [facility] Troponin I measurement by highly sensitive enzyme immunoassay < 0.001 0 - 0.300 07/18/2018 [facility] Serum or plasma creatine kinase measurement (enzymatic activity/volume) 32 29 - 168 07/18/2018 [facility] Serum or plasma creatine kinase MB measurement (mass/volume) 0.70 0 - 5.0 07/18/2018 [facility] Automated reticulocyte count as percentage of total erythrocytes 0.6 0.8 - 2.2 07/18/2018 [facility] Serum or plasma IgA measurement (mass/volume) 381 87 - 352 07/17/2018 [facility] Serum or plasma IgG measurement (mass/volume) 1084 700 - 1600 07/17/2018 [facility] Serum or plasma IgM measurement (mass/volume) 101 26 - 217 07/17/2018 [facility] Serum or plasma thyrotropin measurement by detection limit <=0.005 miu/l (units/volume) 0.577 0.350 - 4.940 07/17/2018 [facility] Serum or plasma total bilirubin measurement (mass/volume) 0.3 0.2 - 1.2 07/17/2018 [facility] Aspartate Amino Transf (AST/SGOT) 25 5 - 34 07/17/2018 [facility] Serum or plasma alanine aminotransferase measurement (enzymatic activity/volume) 30 0 - 55 07/17/2018 [facility] Serum or plasma protein measurement (mass/volume) 6.7 6.5 - 8.1 07/17/2018 [facility] Serum or plasma albumin measurement (mass/volume) 3.2 3.5 - 5.0 07/17/2018 [facility] Plasma globulin measurement (mass/volume) 3.5 2.3 - 3.5 07/17/2018 [facility] Serum or plasma albumin/globulin mass ratio 0.9 0.8 - 2.0 07/17/2018 [facility] Serum or plasma alkaline phosphatase measurement (enzymatic activity/volume) 36 40 - 150 07/17/2018 [facility] Albumin (PEP) 3.5 2.9 - 4.4 07/16/2018 [facility] Serum or plasma alpha 1 globulin measurement by electrophoresis (mass/volume) 0.2 0.0 - 0.4 07/16/2018 [facility] Serum or plasma alpha 2 globulin measurement by electrophoresis (mass/volume) 1.2 0.4 - 1.0 07/16/2018 [facility] Serum or plasma beta globulin measurement by electrophoresis (mass/volume) 1.1 0.7 - 1.3 07/16/2018 [facility] Serum or plasma gamma globulin measurement by electrophoresis (mass/volume) 1.5 0.4 - 1.8 07/16/2018 [facility] Serum or plasma protein measurement (mass/volume) 7.5 6.0 - 8.5 07/16/2018 [facility] Serum globulin measurement by calculation (mass/volume) 4.0 2.2 - 3.9 07/16/2018 [facility] Serum immunoglobulin kappa light chains measurement (mass/volume) 99.6 3.3 - 19.4 07/16/2018 [facility] Serum or plasma immunoglobulin free lambda light chains measurement (mass/volume) 42.4 5.7 - 26.3 07/16/2018 [facility] Serum immunoglobulin kappa light chains/immunoglobulin lambda light chains mass ratio 2.35 0.26 - 1.65 07/16/2018 [facility] Serum or plasma protein monoclonal measurement by electrophoresis (mass/volume) Not Observed Not Observed 07/16/2018 [facility] Serum or plasma albumin/globulin mass ratio 0.9 0.7 - 1.7 07/16/2018 [facility] Protein Electrophoresis Note Comment . 07/16/2018 [facility] Serum or plasma hepatitis A virus IgM antibody detection by immunoassay Negative Negative 07/16/2018 [facility] Serum or plasma hepatitis B virus surface antigen detection by immunoassay Negative Negative 07/16/2018 [facility] Serum or plasma hepatitis B virus core IgM antibody detection by immunoassay Negative Negative 07/16/2018 [facility] Serum hepatitis C virus antibody detection 0.3 0.0 - 0.9 07/16/2018 [facility] Urine color determination YELLOW YELLOW 07/16/2018 [facility] Urine clarity SL CLOUDY CLEAR 07/16/2018 [facility] Specific gravity of Urine by Test strip 1.020 1.010 - 1.025 07/16/2018 [facility] Urine pH measurement by automated test strip 6 5 - 7 07/16/2018 [facility] Urine leukocyte esterase detection by dipstick TRACE NEGATIVE 07/16/2018 [facility] Urine nitrite detection NEGATIVE NEGATIVE 07/16/2018 [facility] Urine protein measurement by test strip (mass/volume) NEGATIVE NEGATIVE 07/16/2018 [facility] Urine glucose detection NEGATIVE NEGATIVE 07/16/2018 [facility] Urine ketones detection by automated test strip NEGATIVE NEGATIVE 07/16/2018 [facility] Urine urobilinogen measurement by test strip (mass/volume) 0.2 0.2 - 1 07/16/2018 [facility] Urine total bilirubin measurement (mass/volume) NEGATIVE NEGATIVE 07/16/2018 [facility] Urine erythrocytes detection NEGATIVE NEGATIVE 07/16/2018 [facility] Automated urine sediment leukocyte count by microscopy (number/high power field) 6-10 0 - 5 07/16/2018 [facility] Erythrocytes detection in urine sediment by light microscopy NONE 0 - 5 07/16/2018 [facility] Bacteria detection in urine sediment by light microscopy MODERATE NONE 07/16/2018 [facility] Epithelial cells detection in urine sediment by light microscopy FEW NONE 07/16/2018 [facility] Renal epithelial cells detection in urine sediment by light microscopy FEW NONE 07/16/2018 [facility] Amorphous sediment detection in urine sediment by light microscopy FEW FEW 07/16/2018 [facility] Automated fine granular casts count in urine sediment by microscopy lowpower field (number/area) 1-5 0 07/16/2018 [facility] Manual blood eosinophil count as percentage of total leukocytes 2 0 - 7 07/16/2018 [facility] Phosphorus measurement 3.4 2.3 - 4.7 07/16/2018 [facility] Serum or plasma magnesium measurement (mass/volume) 2.7 1.3 - 2.1 07/16/2018 [facility] Serum or plasma iron measurement (mass/volume) 88 50 - 170 07/16/2018 [facility] Serum or plasma iron binding capacity measurement (mass/volume) 344 261 - 478 07/16/2018 [facility] Serum or plasma iron saturation measurement (mass fraction) 26 15 - 50 07/16/2018 [facility] Serum or plasma transferrin measurement (mass/volume) 246 180 - 382 07/16/2018 [facility] Blood cobalamin (vitamin B12) measurement (mass/volume) 961 213 - 816 07/16/2018 [facility] Serum or plasma folate measurement (mass/volume) 13.1 7.0 - 15.4 07/16/2018 [facility] HIV 1 and 2 antibody detection qualitative by rapid immunoassay NON-REACTIVE NONREACTIVE 07/16/2018 [facility] HIV P24 Antigen NON-REACTIVE NONREACTIVE 07/16/2018 [facility] Stool lactoferrin detection NEGATIVE NEGATIVE 06/02/2018 [facility] Stool calprotectin measurement (mass/mass) <16 0 - 120 06/02/2018 [facility] Clostridium difficile A and B toxin assay NEGATIVE NEGATIVE 06/02/2018 [facility] Vital Signs Vital Sign Value Date Comments Source Encounters Location Location Details Encounter Type Encounter Number Reason For Visit Attending Provider ADM Date DC Date Status Source Registered [facility] [id number] FROY ZAIDI MD 06/02/2018 [facility] Discharged Inpatient [id number] LEODAN DONOVAN MD 07/18/2018 07/19/2018 [facility] Procedures Procedure Code Date Perfomer Comments Source X-ray of chest, two views [id number] 07/16/2018 [facility] EGD BIOPSY SINGLE/MULTIPLE [id number] 06/02/2018 [facility] COLONOSCOPY AND BIOPSY [id number] 06/02/2018 [facility] COLONOSCOPY W/LESION REMOVAL [id number] 06/02/2018 [facility]
--- OUTSIDE RECORDS SUMMARY | 2018-08-06 23:16 | XMS REPORT | Summary of Care ---
Author Author MARCO Barnes, FLORA Organization Unknown Address Unknown Phone Unavailable Care Team Providers Care Roller Embosser Name Role Phone FLORA LARA M.D. Unavailable Unavailable Shanna Khan R.N. Unavailable Unavailable MARCO CASTELAN HI, FLORA Unavailable Unavailable Unavailable Unavailable Functional Status Name Dates Details Functional status health issues are not documented Status: Name Dates Details Cognitive status health issues are not documented Status: Problems Name Dates Details Encounter for well woman exam with routine gynecological exam (V72.31, Z01.419) Status: Active Urinary symptom or sign (788.99, R39.9) Status: Active Uterine prolapse (618.1, N81.4) Status: Active Encounter for fitting and adjustment of pessary (V53.99, Z46.89) Status: Active Preop testing (V72.84, Z01.818) Status: Active Fitting and adjustment of pessary (V53.99, Z46.89) Status: Active UTI (urinary tract infection), bacterial (599.0, N39.0) Status: Active Medications Name Dates Details Metoprolol Succinate ER 50 MG Oral Tablet Extended Release 24 Hour Active MetFORMIN HCl - 1000 MG Oral Tablet * Refills: 0 Active Estradiol 0.1 MG/GM Vaginal Cream Insert 0.5 gram intravaginally at bedtime 2 times a week. * Quantity: 1 Refills: 0 FLORA LARA M.D. * Start : 03-Jul-2018 Active 42.5 GM Tube Sulfamethoxazole-Trimethoprim 800-160 MG Oral Tablet TAKE 1 TABLET TWICE DAILY UNTIL FINISHED. * Quantity: 14 Refills: 0 FLORA LARA M.D. * Start : 06-Aug-2018 Active Allergies and Adverse Reactions Name Dates Details No Known Drug Allergies (Allergy) Status: Active Past Medical History Name Dates Details History of Diabetes (250.00, E11.9) Status: Resolved History of diabetes mellitus (V12.29, Z86.39) Status: Resolved History of High blood pressure (401.9, I10) Status: Resolved History of hyperlipidemia (V12.29, Z86.39) Status: Resolved History of hypertension (V12.59, Z86.79) Status: Resolved History of Surgery, elective (V50.9, Z41.9) Status: Resolved Procedures Procedure Dates Details [QLH] CBC (INCLUDES DIFF/PLT) Date: 29-Jun-2018 [] HIV AB, HIV 1/2, EIA, WITH REFLEXES Date: 29-Jun-2018 [QL] BASIC METABOLIC PANEL W/EGFR Date: 29-Jun-2018 [QL] HEPATITIS PANEL Date: 29-Jun-2018 [QL] URINALYSIS, COMPLETE Date: 30-Jul-2018 [[facility]] CULTURE, URINE, ROUTINE Date: 30-Jul-2018 History of Appendectomy Completed Comments: Completed: 1960 History of Intracranial aneurysm repair Completed Comments: Completed: 2008 Immunization Name Dates Details Immunizations not documented Social History Name Dates Details - Status: Name Dates Details Never smoker Former smoker Never smoker Vital Signs Date Test Result Details 1-Vqm-[id number]:04 BP Systolic 132 mm[Hg] Status: Comments: Location: [facility]; Position: Sitting BP Diastolic 54 mm[Hg] Status: Comments: Location: [facility]; Position: Sitting Height 64 in Status: Weight 116 lb Status: Body Mass Index Calculated 19.91 kg/m2 Status: Body Surface Area Calculated 1.55 m2 Status: Temperature 98 f Status: Comments: Method: Oral Heart Rate 54 /min Status: O2 SAT 99 % Status: Results Date Description Value Details 3-Cno-[id number] [O] Urine Dipstick (In Office) Glucose Negative (Normal) LEUKOCYTES Negative (Normal) NITRITE Negative (Normal) UROBILINOGEN 0.2 (Normal) PROTEIN Trace (Abnormal) pH 5.5 (Normal) URINE BLOOD Trace (Abnormal) SPECIFIC GRAVITY 1.025 (Normal) KETONES Negative (Normal) BILIRUBIN Negative (Normal) COLOR URINE yellow (Normal) APPEARANCE clear (Normal) 03-Aug-20180:00 [QLH] URINALYSIS, COMPLETE UA Color Yellow UA Turbidity Slight (Abnormal) Range: Clear UA Spec Grav 1.019 Range: <=1.030 UA pH 5.0 Range: 5.0-8.0 UA Protein Negative Range: Negative UA Glucose Negative Range: Negative UA Ketones Negative Range: Negative UA Bili Negative Range: Negative UA Blood Negative Range: Negative UROBILINOGEN <=1.0 mg/dl Range: 0.1-1.0 UA Nitrite Negative Range: Negative UA Leuk Est Negative Range: Negative UA RBC 1 {/HPF} Range: 0-2 UA WBC 2 {/HPF} Range: 0-5 UA Bacteria Occasional {/HPF} Range: None Seen UA Mucus Few {/LPF} Range: None Seen UA Sq Epi Many {/LPF} (Abnormal) Range: Few :00 [[facility]] CULTURE, URINE, ROUTINE Comments: Source: Urine, Clean CatchBody Site: URINE ORGANISM Klebsiella pneumoniae ssp pneumoniae FINAL REPORT 10,000 - 50,000 CFU/mL Klebsiella pneumoniae ssp pneumoniae :00 [H] [facility] Comments: Source: Urine, Clean CatchBody Site: URINE ORGANISM Klebsiella pneumoniae ssp pneumoniae Amikacin - (Susceptible) Ampicillin - (Resistant) Ampicillin/Sulbactam - (Susceptible) Cefazolin - (Susceptible) Ceftriaxone - (Susceptible) Ciprofloxacin - (Susceptible) Cefepime - (Susceptible) ESBL Confirmation - Gentamicin - (Susceptible) Levofloxacin - (Susceptible) Nitrofurantoin - (Resistant) Piperacillin/Tazobactam - (Susceptible) Trimethoprim/Sulfamethoxazole - (Susceptible) Tobramycin - (Susceptible) Meropenem - (Susceptible) Tetracycline SEE NOTES (Susceptible) Comments: S=Susceptible, R=Resistant, I=Intermediate, N/A=Not Applicable Plan of Care Name Dates Details Planned Observations Planned Goals not documented Planned Encounters Infectious Disease Referral Interventions Provided Medication Changes* Sulfamethoxazole-Trimethoprim 800-160 MG Oral Tablet - Start Instructions Name Dates Details Instructions not documented Encounters Appointment; HANNA FRAZIER M.D. Encounter Diagnosis: Problem not documented On: 06-Jun-2018 14:45 Appointment; FLORA LARA M.D. Encounter Diagnosis: Problem not documented On: 08-Jun-2018 14:00 Appointment; FLORA LARA M.D. Encounter Diagnosis: Problem not documented On: 29-Jun-2018 9:45 Appointment; FLORA LARA M.D. Encounter Diagnosis: Problem not documented On: 03-Aug-2018 14:45
--- OUTSIDE RECORDS SUMMARY | 2018-08-06 23:16 | XMS REPORT ---
[facility] Address Unknown Phone Unavailable Care Team Providers Care Client Services Director Name Role Phone LEODAN DONOVAN Unavailable Unavailable Problems This patient has no known problems. Allergies, Adverse Reactions, Alerts This patient has no known allergies or adverse reactions. Medications This patient has no known medications. Results Test Description Test Time Test Comments Text Results Atomic Results Result Comments CHEST SINGLE (PORTABLE) 2018-07-18 17:18:00 [place] [address] Patient Name: VIV HUFFMAN MR #: [id number] : 1945 Age/Sex: 72/F Req #: [id number] [facility] Physician: LEODAN DONOVAN MD Ordered by: LEODAN DONOVAN MD Report #: [id number] Location: [facility] Room/Bed: [place] [address] Procedure: [id number] DX/CHEST SINGLE (PORTABLE) Exam Date: 07/18/18 Exam Time: 1625 REPORT STATUS: Signed EXAMINATION: CHEST SINGLE (PORTABLE) CO MPARISON: Chest x-ray 07/16/2018 INDICATION: Chest pain DISCUSSION: Frontal view of the chest obtained at 1637 hours. HEART AND MEDIASTINUM: The cardiomediastinal silhouette is unremarkable. LINES: None. LUNGS: Diffuse hyperinflation suggestive of COPD. No pneumonia or pulmonary edema. PLEURA: No pleural effusion or pneumothorax. BONES AND SOFT TISSUES: No focal osseous lesion. The soft tissues are normal. IMPRESSION: Stable pulmonary hyperinflation. No acute cardiopulmonary process. Signed by: Dr. Jatin Grullon MD on 07/18/2018 5:19 PM Dictated By: JATIN GRULLON MD 18 Transcribed By: JOVAN on 07/18/181718 COPY TO: LEODAN DONOVAN MD HEPTOBILIARY W PHARM 2018-07-17 18:44:00 [place] [address] Patient Name: VIV HUFFMAN MR #: [id number] : 1945 Age/Sex: 72/F Req #: [id number] Adm Physician: LEODAN DONOVAN MD Ordered by: SHAWN TREJO MD Report #: [id number] Location: [facility] Room/Bed: [place] [address] Procedure: [id number] NM/HEPTOBILIARY W PHARM Exam Date: 07/17/18 Exam Time: 1544 REPORT STATUS: Signed Hepatobiliary Scan with Gallbladder Ejection Fraction Clinical information: 72 F with abdominal pain Report: Following intravenous administration of 5.9 millicuries of Tc-99m mebrofenin, dynamic images of the abdomen in the anterior projection were obtained through 30 minutes. Sincalide (CCK analog) 1.2 micrograms was administered intravenously over 30 minutes with additional imaging for determination of gallbladder ejection fraction. Perfusion to the liver is normal. Extraction of tracer from the blood pool by the liver parenchyma is normal. Tracer is seen promptly within the biliary tract. The gallbladder begins to fill by 12 minutes post-injection of tracer and fills adequately. Tracer is seen in the small bowel by 8 minutes. The gallbladder ejection fraction with administration of sincalide is 11% (normal greater than 40%). Impression: 1. Filling of the gallbladder excludes the diagnosis of acute cystic duct obstruction/acute cholecystitis. 2. Normal gallbladder ejection fraction of 11% does not support the clinical diagnosis of chronic cholecystitis/gallbladder dyskinesia. Signed by: Dr. Rebekah Correa M.D. on 07/17/2018 6:45 PM Dictated By: REBEKAH CORREA MD 44 Transcribed By: JOVAN on 07/17/181844 COPY TO: SHAWN TREJO MD CHEST 2 VIEWS 2018-07-16 19:21:00 [place] [address] Patient Name: VIV HUFFMAN MR #: [id number] : 1945 Age/Sex: 72/F Req #: [id number] Adm Physician: LEODAN DONOVAN MD Ordered by: LEODAN DONOVAN MD Report #: [id number] Location: [facility] Room/Bed: [place] [address] Procedure: [id number] DX/CHEST 2 VIEWS Exam Date: Exam Time: REPORT STATUS: Signed EXAMINATION: CHEST 2 VIEWS INDICATION: Fever and weakness COMPARISON: None FINDINGS: PA and lateral views TUBES and LINES: None. LUNGS: The diaphragms are flat. The lungs are well-inflated. There is no evidence of pneumonia or pulmonary edema. PLEURA: There is blunting of the left posterior costophrenic angle. HEART AND MEDIASTINUM: The cardiomediastinal silhouette is unremarkable.. BONES AND SOFT TISSUES: No focal osseous lesions. Soft tissues are unremarkable. UPPER ABDOMEN: No free air under the diaphragm. IMPRESSION: Pulmonary hyperinflation suggestive of COPD. Blunting of the left posterior costophrenic angle may be the result of pleural effusion or pleural thickening. Signed by: Dr. Jatin Grullon MD on 07/16/2018 7:22 PM Dictated By: JATIN GRULLON MD 21 Transcribed By: JOVAN on 07/16/181921 COPY TO: LEODAN DONOVAN MD
[2018-08-07] MEDS ORDERED: ACETAMINOPHEN 325 MG TAB PO ONE ×2 (00:30→06:45)
[2018-08-07 00:55] LABS: EOSINOPHILS % 0.2 % (0.0-6.0); HEMATOCRIT 32.9 % (34.2-44.1); HEMOGLOBIN 10.5 g/dL (12.0-16.0); LYMPHOCYTES # (AUTO) 0.2 (1.0-3.2); MEAN CORPUSCULAR HEMOGLOBIN 29.7 pg (28-32); MEAN CORPUSCULAR HGB CONC 31.9 g/dL (31-35); MEAN CORPUSCULAR VOLUME 92.9 fL (81-99); MONOCYTES # (AUTO) 0.1 (0.2-0.8); MONOCYTES % 1.8 % (4.4-11.3); NEUTROPHILS % 92.8 % (38.7-80.0); PLATELET COUNT 232 x10e3/uL (140-360); RED BLOOD COUNT 3.54 x10e6/uL (3.6-5.1)
[2018-08-07 01:04] LABS: INFLUENZAE A&B ANTIGEN (RAPID) NEGATIVE (NEGATIVE); STREPTOCOCCUS GRP A ANTIGEN NEGATIVE (NEGATIVE)
[2018-08-07 01:05] LABS: CREATININE, SERUM 1.15 mg/dL (0.57-1.11)
[2018-08-07 01:06] LABS: CALCIUM 9.3 mg/dL (8.4-10.2)
[2018-08-07 01:16] LABS: ANION GAP 17.4 mmol/L (8-16); POTASSIUM 4.4 mmol/L (3.5-5.1)
[2018-08-07 01:27] LABS: BILIRUBIN,URINE NEGATIVE (NEGATIVE); CLARITY,URINE CLEAR (CLEAR); COLOR,URINE YELLOW (YELLOW); KETONES,URINE NEGATIVE (NEGATIVE); LEUKOCYTE ESTERASE ,URINE NEGATIVE (NEGATIVE); NITRITE,URINE NEGATIVE (NEGATIVE); PROTEIN,URINE DIPSTICK NEGATIVE (NEGATIVE); URINE UROBILINOGEN 0.2 mg/dL (0.2 - 1)
[2018-08-07 01:28] LABS: AMORPHOUS SEDIMENT,URINE FEW (FEW); BACTERIA,URINE MODERATE /HPF; EPITHELIAL CELLS,URINE FEW /LPF; RBC,URINE 0-5 /HPF (0-5); WBC,URINE (MAN) 0-5 /HPF (0-5)
[2018-08-07] MEDS ORDERED: ACETAMINOPHEN 325 MG TAB ONE (06:36)
== END 2018-08-07 06:48 | disposition home or self-care (01) ==
LOC: ER 23:13
DX: R50.9 Fever, unspecified (principal); N30.90 Cystitis, unspecified without hematuria
CPT/HCPCS: 36415; 80048; 81001; 83518; 85025; 87040; 87070; 87086; 87400; 99283